=== PATIENT | male | born 1980 | race Two or more races ===

== ENCOUNTER 2016-07-13 16:30 | Emergency (ER) | payer MEDICAID ==
[~2016-07-13] VITALS: Ht 175.3 cm; Wt 88.9 kg
[2016-07-13] MEDS ORDERED: OXYcodone/APAP 7.5/325MG TABLET PO ONE (17:00)
[2016-07-13] MEDS ORDERED: DIAZEPAM 5 MG TABLET PO ONE (17:00)
[2016-07-13] MEDS ORDERED: OXYcodone/APAP 7.5/325MG TABLET ONE (17:06)
[2016-07-13] MEDS ORDERED: DIAZEPAM 5 MG TABLET ONE (17:06)
[2016-07-13 17:40] VITALS: BP 128/91
[2016-07-13] MEDS ORDERED: LISI-167 PO (18:05)
[2016-07-13] MEDS ORDERED: AMLO10TA2 PO (18:09)
[2016-07-13] MEDS ORDERED: CYAN100074 PO (18:09)
[2016-07-13] MEDS ORDERED: CYCL7.5T25 PO (18:09)
[2016-07-13] MEDS ORDERED: CARV6.252 PO (18:09)
[2016-07-13] MEDS ORDERED: BACL20TA PO (18:09)
[2016-07-13] MEDS ORDERED: NAPR550T3 PO (18:09)
== END 2016-07-13 18:20 | disposition home or self-care (01) ==
LOC: ED 17:14
DX: S39.012A Strain of muscle, fascia and tendon of lower back, initial encounter (principal); M54.16 Radiculopathy, lumbar region; I10 Essential (primary) hypertension; X58.XXXA Exposure to other specified factors, initial encounter; Y93.89 Activity, other specified; Y92.89 Other specified places as the place of occurrence of the external cause; Y99.8 Other external cause status
CPT/HCPCS: 99284; J7512

== ENCOUNTER 2016-07-16 10:30 | Emergency (ER) | payer MEDICAID ==
[~2016-07-16 10:30] MED LIST: AMLO10TA2 PO; BACL20TA PO; CARV6.252 PO; CYAN100074 PO; CYCL7.5T25 PO; LISI-167 PO; NAPR550T3 PO
[2016-07-16 10:51] VITALS: BP 137/95
[2016-07-16] MEDS ORDERED: ONDANSETRON ODT 4 MG PO ONE (11:30)
[2016-07-16] MEDS ORDERED: DIAZEPAM 5 MG TABLET PO ONE (11:30)
[2016-07-16] MEDS ORDERED: HYDROmorphone 1 MG/ML, 1ML IM ONE (11:30)
[2016-07-16] MEDS ORDERED: HYDROmorphone 1 MG/ML, 1ML ONE (11:48)
[2016-07-16] MEDS ORDERED: ONDANSETRON ODT 4 MG ONE (11:49)
[2016-07-16] MEDS ORDERED: DIAZEPAM 5 MG TABLET ONE (11:49)
== END 2016-07-16 12:11 | disposition home or self-care (01) ==
LOC: ED 12:05
DX: S39.012A Strain of muscle, fascia and tendon of lower back, initial encounter (principal); M54.42 Lumbago with sciatica, left side; F10.239 Alcohol dependence with withdrawal, unspecified; X58.XXXA Exposure to other specified factors, initial encounter; Y93.89 Activity, other specified; Y92.89 Other specified places as the place of occurrence of the external cause; Y99.8 Other external cause status
CPT/HCPCS: 96372; 99283; J1170; Q0162

== ENCOUNTER 2018-03-19 13:41 | Emergency (ER) | payer MEDICAID ==
[~2018-03-19] VITALS: Ht 175.3 cm; Wt 77.2 kg
[~2018-03-19 13:41] MED LIST changes: -AMLO10TA2 PO; +AMLO10TA6 PO; +NAPR-850 PO; -NAPR550T3 PO
[2018-03-19 14:32] LABS: MICROSCOPIC INDICATED
[2018-03-19 15:28] LABS: CULTURE INDICATED? NO
[2018-03-19] MEDS ORDERED: THIAMINE 100MG TABLET PO ONE (16:00)
[2018-03-19] MEDS ORDERED: LORazepam 1MG TABLET PO ONE (16:00)
[2018-03-19] MEDS ORDERED: THIAMINE 100MG TABLET ONE (16:03)
[2018-03-19 16:04] LABS: BASOPHILS # (AUTO) 0.02 x10^3/uL (0-0.1); BASOPHILS % (AUTO) 0 % (0-1); EOSINOPHILS # (AUTO) 0.02 x10^3/uL (0-0.4); EOSINOPHILS % (AUTO) 0 % (1-7); LYMPHOCYTES # (AUTO) 1.16 x10^3/uL (1-3.4); LYMPHOCYTES % (AUTO) 18 % (22-44); MD NO; MEAN CORPUSCULAR HEMOGLOBIN 37.1 pg (27.5-34.5); MEAN CORPUSCULAR HGB CONC 35.3 g/dL (33.2-36.2); MEAN CORPUSCULAR VOLUME 105.3 fL (81-97); MEAN PLATELET VOLUME 6.9 fL (7.4-10.4); MONOCYTES # (AUTO) 0.47 x10^3/uL (0.2-0.8); MONOCYTES % (AUTO) 7 % (2-9); NEUTROPHILS # (AUTO) 4.72 x10^3/uL (1.8-6.8); NEUTROPHILS % (AUTO) 74 % (42-75); PLATELET COUNT 177 x10^3/uL (130-400); RED BLOOD COUNT 4.31 x10^6/uL (4.38-5.82); RED CELL DISTRIBUTION WIDTH 13.1 % (9.4-14.8)
[2018-03-19] MEDS ORDERED: LORazepam 1MG TABLET ONE (16:04)
[2018-03-19 16:14] LABS: INTERNATIONAL NORMALIZED RATIO 1.02 (0.93-1.1); PROTHROMBIN TIME 10.8 Seconds (9.6-11.5)
[2018-03-19 16:16] LABS: ALANINE AMINOTRANSFERASE 59 U/L (12-78); ALBUMIN 4.1 g/dL (3.4-5.0); ANION GAP 12 mmol/L (5-15); CALCIUM 9.4 mg/dL (8.5-10.1); CHLORIDE 105 mmol/L (98-107); CREATININE 0.77 mg/dL (0.7-1.3)
[2018-03-19 16:18] LABS: ALKALINE PHOSPHATASE 73 U/L (45-117); BILIRUBIN,TOTAL 0.9 mg/dL (0.2-1.0); TOTAL PROTEIN 7.7 g/dL (6.4-8.2)
[2018-03-19 17:31] VITALS: BP 154/110
== END 2018-03-19 17:33 | disposition home or self-care (01) ==
LOC: ED 16:56
DX: R31.0 Gross hematuria (principal)
CPT/HCPCS: 36415; 80053; 80307; 81001; 83690; 85025; 85610; 85730; 99283

== ENCOUNTER 2018-06-17 05:40 | Emergency (ER) | payer MEDICAID ==
[~2018-06-17] VITALS: Ht 175.3 cm; Wt 77.2 kg
[~2018-06-17 05:40] MED LIST changes: -AMLO10TA6 PO; +AMLO10TA8 PO
[2018-06-17] MEDS ORDERED: HYDROcodone/APAP 5/325 TABLET PO ONE (06:00)
[2018-06-17] MEDS ORDERED: HYDROcodone/APAP 5/325 TABLET ONE (06:00)
[2018-06-17 06:03] VITALS: BP 149/106
== END 2018-06-17 06:40 | disposition home or self-care (01) ==
LOC: ED 06:15
DX: M13.172 Monoarthritis, not elsewhere classified, left ankle and foot (principal); I10 Essential (primary) hypertension; Z76.0 Encounter for issue of repeat prescription; M54.9 Dorsalgia, unspecified; G89.29 Other chronic pain
CPT/HCPCS: 99283